=== PATIENT | male | born 1960 | race Two or more races ===

== ENCOUNTER → 2024-11-17 | Outpatient (CLI) | payer MEDICAID, SELFPAY ==
--- NOTE | 2024-11-17 13:30 | ECHO_ITS ---
Transthoracic Echo Report Ht (in): 68 Wt (lb): 176 Exam Location: Echo Lab Status: Preadmit Daytime Caregiver: VISHAL Israel^^^^ Indications: Procedure Performed: BP: 133 / 78 HR: 65 Technical Quality: Fair MEASUREMENTS (Male / Female) Normal Values 2D ECHO LV Diastolic Diameter PLAX 4.8 cm 4.2 - 5.9 / 3.9 - 5.3 cm LV Systolic Diameter PLAX 3.3 cm IVS Diastolic Thickness 0.7 cm 0.6 - 1.0 / 0.6 - 0.9 cm LVPW Diastolic Thickness 0.8 cm 0.6 - 1.0 / 0.6 - 0.9 cm LV Relative Wall Thickness 0.3 LVOT Diameter 1.9 cm Aortic Root Diameter 3.3 cm LA Systolic Diameter LX 3.7 cm 3.0 - 4.0 / 2.7 - 3.8 cm LA Volume Index 39.5 cm?/m? 16 - 28 cm?/m? Ascending Aorta Diameter 2.8 cm DOPPLER AV Peak Velocity 107.0 cm/s AV Peak Gradient 4.6 mmHg AV Mean Gradient 3.0 mmHg AV Velocity Time Integral 26.6 cm LVOT Peak Velocity 87.9 cm/s LVOT Peak Gradient 3.1 mmHg LVOT Velocity Time Integral 23.8 cm LVOT Cardiac Index 2224.6 cm?/min?m? AV Area Cont Eq vti 2.5 cm? AV Area Cont Eq pk 2.3 cm? MV Area PHT 3.7 cm? MR Peak Velocity 448.0 cm/s MR Peak Gradient 80.3 mmHg Mitral E Point Velocity 73.5 cm/s Mitral A Point Velocity 110.0 cm/s Mitral E to A Ratio 0.7 LV E' Lateral Velocity 12.2 cm/s Mitral E to LV E' Lateral Ratio 6.0 LV E' Septal Velocity 10.5 cm/s Mitral E to LV E' Septal Ratio 7.0 TR Peak Velocity 243.3 cm/s TR Peak Gradient 23.7 mmHg PV Peak Velocity 108.0 cm/s PV Peak Gradient 4.7 mmHg RVOT Peak Velocity 67.2 cm/s FINDINGS Left Ventricle Normal left ventricular size, wall thickness, systolic function with no obvious regional wall motion abnormalities. There is grade I diastolic dysfunction of the left ventricle (impaired relaxation pattern). The left ventricular ejection fraction is normal, estimated at 60-65%. Right Ventricle The right ventricle is normal in size and systolic function. The estimated right ventricular systolic pressure, 35 mmHg. Left Atrium Mildly increased left atrial volume 39.5 mL/m?. Right Atrium The right atrium is normal by two-dimensional imaging, color flow and Doppler imaging with no structural abnormalities, no thrombus formation present. Atrial Septum The interatrial septum appears normal with no evidence of a shunt. Aorta The aorta is normal by two-dimensional, color flow and Doppler interrogation. Mitral Valve Mild mitral regurgitation. Mild mitral annular calcification. Aortic Valve The aortic valve is trileaflet and normal by two-dimensional, color flow and Doppler interrogation. There is no significant aortic valve regurgitation. Tricuspid Valve There is mild tricuspid valve regurgitation. Pulmonic Valve Trivial pulmonic valve regurgitation. Vessels The pulmonary artery appears normal. The inferior vena cava pulmonary and hepatic veins appear normal. Pericardium The pericardium is normal by two-dimensional imaging. There is no significant pericardial effusion. CONCLUSIONS Indication: Shortness of breath Normal LV size and function with an EF of 60 to 65%. Stage I diastolic dysfunction. Mild LVH. Normal RV size and function. Mildly elevated RVSP at 35 mmHg. Mild MR with mild MAC and mild TR. Mild LA dilatation. William Wang (Electronically Signed) Final Date: 19 November 2024 11:45
== END | disposition home or self-care (01) ==
PROVIDERS: PCP Nurse Practitioner Primary Care; Referring Provider Nurse Practitioner Primary Care; Visit Provider Nurse Practitioner Primary Care
DX: I08.1 Rheumatic disorders of both mitral and tricuspid valves (principal); I50.30 Unspecified diastolic (congestive) heart failure
CPT/HCPCS: 93306